=== PATIENT | female | born 1980 | race Caucasian/White ===

== ENCOUNTER 2021-05-25 08:03 | Emergency (ER) | payer BC ==
[~2021-05-25] VITALS: Ht 170.2 cm; Wt 113.4 kg
[~2021-05-25 08:03] MED LIST: ACETAMINOPHEN-1 EAC1 PO; LIDOCAINE VISC100 M1 SWISH&SPIT; PENICILLIN V P500 MG PO
[2021-05-25] MEDS ORDERED: HYDROCODON-ACE1 EAC7 PO (09:53)
[2021-05-25] MEDS ORDERED: IBUPROFEN 800800 M1 PO (09:53)
[2021-05-25] MEDS ORDERED: FLEXERIL PO (09:53)
[2021-05-25 10:15] VITALS: BP 147/75
== END 2021-05-25 10:15 | disposition home or self-care (01) ==
LOC: M.ERS 08:03
DX: M54.50 Low back pain, unspecified (principal); F17.210 Nicotine dependence, cigarettes, uncomplicated; Z88.0 Allergy status to penicillin; Z88.4 Allergy status to anesthetic agent